=== PATIENT | female | born 1965 | race Two or more races ===

== ENCOUNTER 2021-12-18 09:03 | Emergency (ER) | payer OTHER ==
[~2021-12-18] VITALS: Ht 154.9 cm; Wt 68.0 kg
[2021-12-18] MEDS ORDERED: LEVOTHYROXINE25 MCG (09:18)
[2021-12-18] MEDS ORDERED: PROMETRIUM200 MG PO (09:22)
== END 2021-12-18 19:41 | disposition home or self-care (01) ==
LOC: ER 09:03
DX: N93.9 Abnormal uterine and vaginal bleeding, unspecified (principal); Z20.822 Contact with and (suspected) exposure to COVID-19

== ENCOUNTER 2022-05-12 07:45 | Inpatient (IN) | payer OTHER ==
[~2022-05-12] VITALS: Ht 157.5 cm; Wt 64.9 kg
[~2022-05-12 07:45] MED LIST: LEVOTHYROXINE25 MCG; PROMETRIUM200 MG PO
[2022-05-12] MEDS ORDERED: SYNTHROID112 MCG PO (10:09)
[2022-05-12] MEDS ORDERED: [UNRECOGNIZED DRUG - OTHER] PO (10:09)
[2022-05-14] MEDS ORDERED: MEGESTROL ACETA20 MG (08:45)
== END 2022-05-15 11:57 | disposition home or self-care (01) | DRG 743 ==
LOC: O/R 05-13 06:26 → SURH 05-13 07:45 → OB/GYN 05-13 15:49
PROVIDERS: ADMIT Obstetrics & Gynecology; ATTEND Obstetrics & Gynecology
PROC: 0UT70ZZ Resection of Bilateral Fallopian Tubes, Open Approach (ICD-10-PCS; 2022-05-13)
PROC: 0UT20ZZ Resection of Bilateral Ovaries, Open Approach (ICD-10-PCS; 2022-05-13)
PROC: 0UT90ZZ Resection of Uterus, Open Approach (ICD-10-PCS; principal; 2022-05-13 09:30)
DX: D25.1 Intramural leiomyoma of uterus (principal); N72 Inflammatory disease of cervix uteri; N85.01 Benign endometrial hyperplasia; N83.311 Acquired atrophy of right ovary; N83.312 Acquired atrophy of left ovary; Z20.822 Contact with and (suspected) exposure to COVID-19